=== PATIENT | female | born 1980 | race Caucasian/White ===

== ENCOUNTER 2017-01-23 12:05 | Emergency (ER) | payer OTHER ==
--- NOTE | ~2017-01-23 | US67 ---
[facility] A Service of [facility] & [facility] RADIOLOGY TEXT RESULTS PATIENT: IMELDA TARIQ LOCATION: [facility] : 84 UNIT #: [id number] AGE: [address]: Mignon Crowell MD SEX: F ORDER DR: [id number] [facility] [address] [place], [place] [address] [id number] E MR#: [id number] Acc #: [id number] NAME: IMELDA TARIQ : 1980 SEX: F STUDY DATE/TIME: 01/23/2017 13:02 UNIT: [facility] ROOM: STUDY DESCRIPTION: US Gallbladder Attending Physician: Mignon Crowell M.D. Ordering Physician: Mignon Crowell M.D. Primary Care Physician: No Primary Care Physician MEDICAL IMAGING REPORT This report is preliminary unless electronic signature is present EXAM Gallbladder ultrasound, 01/23/2017. HISTORY Abdominal pain since early this morning. Bouts of abdominal pain have occurred off and on for past few months. TECHNIQUE Real-time ultrasonography of the left quadrant was performed. COMPARISON STUDIES No prior studies for comparison. FINDINGS The visualized portions of pancreas are unremarkable. Some portions of pancreatic tail obscured by bowel gas artifact. The liver is normal in size, contour, and echotexture. The portal vein is patent with normal direction of flow. The inferior vena cava is patent as are the hepatic veins. The right kidney measures 11.76 cm in greatest length. No hydronephrosis or nephrolithiasis. No cystic or solid mass lesion. The gallbladder is normal in volume for a fasting individual. Fold seen in lower gallbladder segment. No gallstones or pericholecystic fluid. No wall thickening. Gallbladder wall measures about 1.1 mm in thickness. No intra- or extrahepatic biliary ductal dilatation. The common duct measures about 3.4 mm in diameter. IMPRESSION 1. Liver, gallbladder, right kidney normal in appearance. No biliary ductal dilatation. No abnormal fluid collections. 2. Visualized pancreas unremarkable. A portion of the pancreatic tail is obscured from view by bowel gas artifact. If further pancreatic imaging would assist in management, consider CT. [facility] A Service of [facility] & [facility] RADIOLOGY TEXT RESULTS PATIENT: IMELDA TARIQ LOCATION: [facility] : 84 UNIT #: [id number] AGE: [address]: Mignon Crowell MD SEX: F ORDER DR: Dictated by... Darion Menjivar M.D. THIS IS AN ELECTRONICALLY VERIFIED REPORT Darion Menjivar M.D. at 01/24/2017 4:50 PM JAIMIE/brittany TD: 01/23/2017 15:35 JOB #: [id number] MEDICAL IMAGING REPORT Page 1 of 1 COPY
[2017-01-23 12:39] LABS: URINE SOURCE CLEAN CATCH
[2017-01-23 12:52] LABS: BASOPHIL% 0.2 % (0-2.5); EOSINOPHIL# 0.4 X10e3 (0-0.7); EOSINOPHIL% 3.3 % (0.0-7.0); HEMATOCRIT 38.6 % (35.0-45.0); HEMOGLOBIN 12.4 gm/dL (12.0-16.0); LYMPHOCYTE# 1.9 X10e3 (1.0-3.5); LYMPHOCYTE% 15.6 % (17.0-45.0); MEAN CELL VOLUME 87.4 FL (83-96); MEAN CORPUSCULAR HEMOGLOBIN 28.1 PG (28-34); MEAN CORPUSCULAR HGB CONC 32.1 g/dL (30-36); MEAN PLATELET VOLUME 10.1 FL (6.5-11.5); MONOCYTE# 0.6 X10e3 (0-1.0); MONOCYTE% 4.6 % (3.0-12.0); NEUTROPHIL# 9.5 X10e3 (1.5-7.1); NEUTROPHIL% 76.3 % (40-75); PLATELET COUNT 216 X10e3 (140-420); RED BLOOD COUNT 4.42 X10e (3.90-5.30); RED CELL DISTRIBUTION WIDTH 13.6 % (11.0-15.5); WHITE BLOOD COUNT 12.5 X10e3 (4.0-10.5)
[2017-01-23 12:54] LABS: DIFF IND NO
[2017-01-23 12:55] LABS: URINE APPEARANCE CLEAR; URINE BILIRUBIN NEG (NEG); URINE BLOOD 1+ (NEG); URINE COLOR YELLOW; URINE GLUCOSE NEG (NEG); URINE KETONE NEG (NEG); URINE LEUKOCYTE ESTERASE NEG (NEG); URINE NITRATE NEG (NEG); URINE PH 5.5 (5-8); URINE PROTEIN NEG (NEG); URINE SPECIFIC GRAVITY 1.016 (1.003-1.035); URINE UROBILINOGEN 0.2 MG/DL (NEG)
[2017-01-23 12:58] LABS: U HYALINE CASTS AUWI 0-2 /[LPF]; URINE BACTERIA AUWI NEG (NEGATIVE); URINE SQUAMOUS EPITHELIAL CELL NONE SEEN /[HPF]; UWBCS1 AUWI 0-2 (0-5)
[2017-01-23 12:59] LABS: CULTURE INDICATED? NO
[2017-01-23 13:24] LABS: ALBUMIN SERUM 4.1 g/dL (3.5-5.0); ALKALINE PHOSPHATASE 31 U/L (32-92); ALT (SGPT) 14 U/L (10-40); AST (SGOT) 17 U/L (10-42); BILIRUBIN,TOTAL 0.8 mg/dL (0.2-2.0); BLOOD UREA NITROGEN 7 mg/dL (9-23); BUN/CREATININE RATIO 11.66; CARBON DIOXIDE 21 mmol/L (22-31); CHLORIDE 107 mmol/L (100-111); CREATININE SERUM 0.6 mg/dL (0.6-1.4); GLOM FILT RATE Estimated 118.9 mL/min (>60); GLUCOSE FASTING 89 mg/dL (70-110); LIPASE 17 U/L (22-51); POTASSIUM 3.9 mmol/L (3.5-5.1); PROTEIN TOTAL SERUM 6.8 g/dL (6.0-8.3); SODIUM 136 mmol/L (135-145)
[2017-01-23 13:25] LABS: BILIRUBIN, DIRECT <0.1 mg/dL (0.0-0.2); BILIRUBIN,INDIRECT 0.7 mg/dL (0.0-0.9)
== END 2017-01-23 16:20 | disposition home or self-care (01) ==
LOC: CED 12:05
DX: R10.11 Right upper quadrant pain (principal)
CPT/HCPCS: 36415; 76705; 80048; 80076; 81003; 83690; 84703; 85025; 86677; 96374; 96375; 99284; J2270; J2405

== ENCOUNTER 2017-03-19 08:58 | Emergency (ER) | payer OTHER ==
--- NOTE | ~2017-03-19 | US67 ---
[facility] A Service of [facility] & [facility] RADIOLOGY TEXT RESULTS PATIENT: IMELDA TARIQ LOCATION: [facility] : 84 UNIT #: [id number] AGE: [address]: Pam Jolly SEX: F ORDER DR: [id number] [facility] [address] [place], [place] [address] [id number] E MR#: [id number] Acc #: [id number] NAME: IMELDA TARIQ : 1980 SEX: F STUDY DATE/TIME: 03/19/2017 11:07 UNIT: [facility] ROOM: STUDY DESCRIPTION: US Gallbladder Attending Physician: Pam Jolly Pa-C Ordering Physician: Pam Jolly Pa-C Primary Care Physician: No Primary Care Physician MEDICAL IMAGING REPORT This report is preliminary unless electronic signature is present EXAM Gallbladder ultrasound 03/19/17 INDICATIONS Epigastric pain with nausea for the last 4 hours. FINDINGS Sonographic evaluation is performed right upper quadrant in multiple planes. Comparison is made with 01/23/2017. FINDINGS Pancreas is normal. The liver parenchyma is homogeneous and normal. The right kidney is morphologically normal and nonobstructed. Gallbladder remains normal. There is no gallbladder wall thickening. There are no gallstones. Common duct is normal at 4 mm internal diameter. IMPRESSION Normal right upper quadrant ultrasound. No change from 01/23/2017. Dictated by... Michael Ulloa Jr., M.D. THIS IS AN ELECTRONICALLY VERIFIED REPORT Michael Ulloa Jr., M.D. at 03/19/2017 4:24 PM DONTE/rc TD: 03/19/2017 15:05 JOB #: [id number] MEDICAL IMAGING REPORT Page 1 of 1 COPY
[2017-03-19 09:39] LABS: URINE SOURCE CLEAN CATCH
[2017-03-19 10:00] LABS: URINE APPEARANCE CLEAR; URINE BILIRUBIN NEG (NEG); URINE BLOOD 3+ (NEG); URINE COLOR YELLOW; URINE GLUCOSE NEG (NEG); URINE KETONE NEG (NEG); URINE LEUKOCYTE ESTERASE TRACE (NEG); URINE NITRATE NEG (NEG); URINE PROTEIN 2+ (NEG)
[2017-03-19 10:01] LABS: URINE BACTERIA AUWI NEG (NEGATIVE); URINE SQUAMOUS EPITHELIAL CELL OCC /[HPF]
[2017-03-19 10:19] LABS: BASOPHIL% 0.2 % (0-2.5); DIFF IND NO; EOSINOPHIL# 0.1 X10e3 (0-0.7); EOSINOPHIL% 1.1 % (0.0-7.0); HEMATOCRIT 36.6 % (35.0-45.0); HEMOGLOBIN 11.9 gm/dL (12.0-16.0); LYMPHOCYTE# 2.1 X10e3 (1.0-3.5); LYMPHOCYTE% 16.7 % (17.0-45.0); MEAN CELL VOLUME 86.4 FL (83-96); MEAN CORPUSCULAR HGB CONC 32.4 g/dL (30-36); MEAN PLATELET VOLUME 10.2 FL (6.5-11.5); MONOCYTE# 0.7 X10e3 (0-1.0); MONOCYTE% 5.6 % (3.0-12.0); NEUTROPHIL# 9.5 X10e3 (1.5-7.1); NEUTROPHIL% 76.4 % (40-75); PLATELET COUNT 232 X10e3 (140-420); RED BLOOD COUNT 4.24 X10e (3.90-5.30); RED CELL DISTRIBUTION WIDTH 13.4 % (11.0-15.5); WHITE BLOOD COUNT 12.4 X10e3 (4.0-10.5)
[2017-03-19 10:37] LABS: CULTURE INDICATED? NO; URBCS1 AUWI 50-100 /[HPF] (0-2); URINE MUCUS PRESENT
[2017-03-19 10:45] LABS: ALBUMIN SERUM 4.1 g/dL (3.5-5.0); BILIRUBIN, DIRECT 0.1 mg/dL (0.0-0.2); BILIRUBIN,INDIRECT 0.5 mg/dL (0.0-0.9); BILIRUBIN,TOTAL 0.6 mg/dL (0.2-2.0); BUN/CREATININE RATIO 14.28; CALCIUM SERUM 8.5 mg/dL (8.4-10.2); CREATININE SERUM 0.7 mg/dL (0.6-1.4); POTASSIUM 3.8 mmol/L (3.5-5.1)
== END 2017-03-19 12:04 | disposition home or self-care (01) ==
LOC: CED 08:58
PROVIDERS: Physician Assistant Medical
DX: K80.50 Calculus of bile duct without cholangitis or cholecystitis without obstruction (principal)
CPT/HCPCS: 76705; 80048; 80076; 81003; 82150; 83690; 84703; 85025; 96361; 96374; 96375; 99284; J1885; J2405